=== PATIENT | female | born 1955 | race Caucasian/White ===

== ENCOUNTER → 2016-08-27 | Outpatient (CLI) | payer BC ==
[2016-08-27 13:43] LABS: RBC, BODY FLUID 0.006 10*6/uL; WBC, BODY FLUID 12.58 10*3/uL
[2016-08-27 13:52] LABS: CRYSTALS, SYNOVIAL FLUID NONE SEEN (NS)
== END ==
LOC: RAD 12:47
PROVIDERS: ATTEND Orthopaedic Surgery
DX: M25.562 Pain in left knee (principal); M25.462 Effusion, left knee
CPT/HCPCS: 87070; 87075; 87205; 89060

== ENCOUNTER → 2016-08-27 | Outpatient (CLI) | payer BC ==
--- NOTE | 2016-08-27 13:20 | DI ---
LEFT KNEE, 08/27/2016 12:13 PM: Clinical History: Arthritis of the left knee. Previous Exam: None at this facility. Comparison is made with a previous exam of the left knee from 06/23/2015 from [place], [place]. An AP film is submitted with applied stress from the lateral aspect of the distal femur. There is sub luxation of the tibia laterally. Narrowing of the medial compartment is present with sclerosis on bot h sides of the joint space and with what probably represents early subchondral cystic formation in th e medial femoral condyle. Reading: With application of lateral stress on the distal femur, there is subluxation of the tibia laterally. Arthritic changes are present in the medial compartment.
== END ==
LOC: ORTHO 12:16
PROVIDERS: ATTEND Orthopaedic Surgery
DX: M17.12 Unilateral primary osteoarthritis, left knee (principal); M25.462 Effusion, left knee
CPT/HCPCS: 73560

== ENCOUNTER 2016-10-16 05:53 | Inpatient (IN) | payer BC ==
[2016-10-16] MEDS ORDERED: Lactated Ringers 1,000 ML PRIMARY IV ONE (05:57)
[2016-10-16] MEDS ORDERED: LIDOCAINE W/ SODIUM BICARB 0.5 ML SYR ONE ×2 (05:57→07:22)
[2016-10-16 06:17] LABS: BILIRUBIN,URINE NEGATIVE (NEG); COLOR,URINE YELLOW; GLUCOSE, URINE (UA) NEGATIVE (NEG); NITRATE,URINE NEGATIVE (NEG); OCCULT BLOOD,URINE NEGATIVE (NEG); PROTEIN,URINE TRACE mg/dl (NEG); UROBILINOGEN,URINE 0.2 mg/dL (0.2)
[2016-10-16 06:27] LABS: CLARITY,URINE CLEAR (CLEAR); RBC,URINE 0-1 /hpf; SQUAMOUS EPITHELIAL CELL,UR FEW; URINE SAMPLE TYPE VOIDED SPECIMEN; WBC,URINE 0-2
[2016-10-16 06:28] LABS: URINE CASTS RARE
[2016-10-16] MEDS ORDERED: Sodium Chloride 0.9% vial 20 ML ONE (06:40)
[2016-10-16] MEDS ORDERED: BACITRACIN 50,000 UNIT VIAL IRRIG ONE ×2 (06:41→07:00)
[2016-10-16] MEDS ORDERED: Sodium Chloride 0.9% 500 ML ONE (06:55)
[2016-10-16] MEDS ORDERED: Sodium Chloride 0.9% vial 10 ML ONE (07:00)
[2016-10-16] MEDS ORDERED: LIDOCAINE 2%/ EPI 1:200,000 - 20 ML VIAL ONE (07:12)
[2016-10-16] MEDS ORDERED: MIDAZOLAM 5 MG/1 ML ONE (07:12)
[2016-10-16] MEDS ORDERED: fentaNYL Inj 100 MCG/2 ML VIAL ONE (07:12)
[2016-10-16] MEDS ORDERED: DEXAMETHASONE SOD PHOSPHATE 4 MG/1 ML VIAL ONE (07:13)
[2016-10-16] MEDS ORDERED: BUPivacaine Inj 0.5% PF (5mg/ml) 30ml vial ONE (07:13)
[2016-10-16] MEDS ORDERED: Sodium Chloride 0.9% 200 ML IV ONE (07:18)
[2016-10-16] MEDS ORDERED: TRANEXAMIC ACID 1,000 MG / 10 ML VIAL ONE (07:18)
[2016-10-16] MEDS ORDERED: ceFAZolin Inj 2gm (Premix) 50 ML IV ONE (07:18)
[2016-10-16] MEDS ORDERED: Ketorolac Inj 30 MG, Morphine Inj 5 MG, BUPivacaine Inj 0.25% PF 150 MG SPLASH ONE ×3 (07:30)
[2016-10-16] MEDS ORDERED: BUPivacaine Liposome/PF (Exparel) Inj 20ml vial INFIL ONE (08:18)
[2016-10-16] MEDS ORDERED: Sodium Chloride 0.9% vial 40 ML ONE (08:18)
--- NOTE | 2016-10-16 08:30 | CRNA.PROCE ---
Nerve Block Documentation - - Type of Nerve Block Used: Left Sciatic Nerve Block Position for Nerve Block: Prone Moniters Used During Block: EKG, SPO2, NIBP Oxygen Sumpplented: Yes Sedation Used - Enter Amount in Comment Field: Midazolam (mg): Yes (3), Fentanyl (mcg): Yes (100) Skin Prep Used: ChloroPrep Draped: No Technique: Nerve Stimulator Nerve Block Needle Used: 80 mm ProBlk II Stimulation Hz: 2 Stimulation Staring mA: 1.4 Stimulation Ending mA: 0.44 Local Anesthetic - Enter Amt in Comment Field: 0.5 % Bupivacaine Plain (mL): Yes (10ml), 2 % Xylocaine with Epinephrine 1:200,000 (mL): Yes (10ml) Additives to Nerve Blocks: Dexamethasone (mL): Yes (4mg(1ml))
[2016-10-16] MEDS ORDERED: NORMAL SALINE 10 ML SYRINGE FLUSH IVP PRN ×2 (08:32→11:53)
[2016-10-16] MEDS ORDERED: HYDROmorphone 2 MG/1 ML IVP PRN (08:32)
[2016-10-16] MEDS ORDERED: Prochlorperazine Edisylate Inj 10mg/2ml vial IVP PRN (08:32)
[2016-10-16] MEDS ORDERED: ONDANSETRON 4 MG/2 ML VIAL IVP PRN ×2 (08:32→11:53)
--- NOTE | 2016-10-16 08:32 | CRNA.PROCE ---
Nerve Block Documentation - - Type of Nerve Block Used: Left Femoral Nerve Block Position for Nerve Block: Supine Moniters Used During Block: EKG, SPO2, NIBP Oxygen Sumpplented: Yes Sedation Used - Enter Amount in Comment Field: Other Sedation: Yes (sedation from sciatic note) Skin Prep Used: ChloroPrep Technique: Nerve Stimulator Nerve Block Needle Used: 40 mm ProBlk II Stimulation Hz: 2 Stimulation Staring mA: 1.4 Stimulation Ending mA: 0.44 Local Anesthetic - Enter Amt in Comment Field: 0.5 % Bupivacaine Plain (mL): Yes (10ml), 2 % Xylocaine with Epinephrine 1:200,000 (mL): Yes (10ml) Additives to Nerve Blocks: Dexamethasone (mL): Yes (4mg(2ml))
[2016-10-16] MEDS ORDERED: Lactated Ringers 1,000 ML PRIMARY IV SCH (08:45)
[2016-10-16] MEDS ORDERED: Prochlorperazine Tab 10 MG TAB PO PRN (11:53)
[2016-10-16] MEDS ORDERED: CALCIUM CARBONATE 500 MG (TUMS) CHEWABLE TABLET PO PRN (11:53)
[2016-10-16] MEDS ORDERED: BISACODYL 10 MG SUPPOSITORY RECTAL PRN (11:53)
[2016-10-16] MEDS ORDERED: diphenhydrAMINE 25 MG CAPSULE PO PRN (11:53)
[2016-10-16] MEDS ORDERED: ACETAMINOPHEN 325 MG TABLET PO PRN (11:53)
[2016-10-16] MEDS ORDERED: Ondansetron ODT Tab 8 MG TAB PO PRN (11:53)
[2016-10-16] MEDS ORDERED: IBUPROFEN 400 MG TABLET PO PRN (11:53)
[2016-10-16] MEDS ORDERED: MAG HYDROX/AL HYDROX/SIMETH 30 ML SUSP PO PRN (11:53)
[2016-10-16] MEDS ORDERED: MORPHINE SULFATE 2 MG/1 ML IVP PRN (11:53)
[2016-10-16] MEDS ORDERED: BISACODYL 5 MG TABLET PO PRN (11:53)
[2016-10-16] MEDS: Lactated Ringers 1,000 ML PRIMARY IV SCH ×2 (12:33→22:08)
--- NOTE | 2016-10-16 12:49 | CONSULT ---
Consult Note - Consult Consult Date: 10/16/16 Reason for Consult: PostOp Consulation : General Surgery Requesting Physician: Dr. Grayson Primary Care Provider: JERMAIN APPIAH - History of Present Illness History of Present Illness: This is a 61 years old female with medical history significant for history of hypertension, hypothyroidism, GERD and depression who came into the hospital to have a uni-compartmental left knee replacement because of arthritis and was done by Dr. Grayson and the hospitalist service were consulted for management of medical issues. The patient is currently denying symptoms she has a block so there is no pain, she is denying chest pain and no shortness of breath or nausea. Past Medical History Medical History: 1. Hypothyroidism. 2. Hypertension. 3. Depression. 4. GERD Surgical History: History of right knee surgery before Past Social History: Does not smoke, doesn't drink or drugs. She lives in [place] she works at the assisted, she is a nurse Tobacco Use: Never Smoker Substance Use Type: None Alcohol Use: None Review of Systems - Review of Systems All Systems: Reviewed & No Additional Complaints Except as Stated Medication / Allergies Home Medications: Home Medications Medication Instructions Recorded Confirmed Type Gabapentin [Neurontin] 1 cap PO QHS cap 05/25/16 10/16/16 History Ibuprofen 1 tab PO TID tab 05/25/16 10/16/16 History Levothyroxine Sodium [Synthroid] 1 tab PO DAILY tab 05/25/16 10/16/16 History Omeprazole Magnesium [Prilosec Otc] 1 tab PO QD tab 05/25/16 10/16/16 History Simvastatin [Zocor] 1 tab PO QHS tab 05/25/16 10/16/16 History Losartan Potassium 1 tab PO DAILY tab 08/29/16 10/16/16 History Hydrocodone/Acetaminophen 1 - 2 tab PO PRN tab 10/03/16 10/16/16 History [Hydrocodon-Acetaminophen 5-325] Hydrochlorothiazide 25 mg PO DAILY 10/15/16 10/16/16 History Desvenlafaxine Succinate [Pristiq] 100 mg PO DAILY 10/16/16 10/16/16 History Gabapentin [Neurontin] 100 mg PO QAM 10/16/16 10/16/16 History Allergies/Adverse Reactions: Allergies Allergy/AdvReac Type Severity Reaction Status Date / Time No Known Allergies Allergy Verified 10/16/16 12:00 Exam - Vitals Vital Signs: Vital Signs Temperature 97.1 F Temperature Source Temporal Artery Scan Pulse Rate [Pulse Oximeter] 94 Pulse Rate 91 Respiratory Rate 18 Blood Pressure [Right Arm] 139/91 Blood Pressure 130/84 Pulse Ox 96 Oxygen Flow Rate 1 Oxygen Flow Rate 2 Oxygen Delivery Method Nasal Cannula Height 5 ft 4 in Weight 188 lb - General General Appearance: POSITIVE: No Acute Distress, Cooperative, Obese - Head Head Exam: POSITIVE: Normal Inspection, Atraumatic - Eye Eye Exam: POSITIVE: Normal Appearance - ENT ENT Exam: POSITIVE: Normal Exam - Neck Neck Exam: POSITIVE: Normal Inspection - Respiratory Respiratory Exam: POSITIVE: Clear to Auscultation - Bilaterally - Cardiovascular Cardiovascular Exam: POSITIVE: RRR - GI/Abdominal GI/Abdominal Exam: POSITIVE: Normal Bowel Sounds, Non Tender, Non Distended, Soft - Rectal Rectal Exam: POSITIVE: Deferred - External Exam: POSITIVE: Deferred - Extremities Additional Extremities Exam Details: Dressing applied to the left knee - Back Back Exam: POSITIVE: Normal Inspection - Neurological Neurological Exam: POSITIVE: Alert, Oriented x 3, CN II-XII Intact, No Facial Droop, Speech Intact / Clear - Psychiatric Psychiatric Exam: POSITIVE: Normal Affect Results - Labs Labs - Last 24 Hours: Laboratory Results 10/16/16 10/16/16 Range/Units 06:12 06:40 Ur Collection Type Voided specimen Urine Color Yellow Urine Clarity Clear (CLEAR) Urine pH 7.0 (5.0-8.5) Ur Specific [place] 1.020 (1.005-1.030) Urine Protein Trace (NEG) mg/dl Urine Glucose (UA) Negative (NEG) mg/dL Urine Ketones Negative (NEG) Urine Occult Blood Negative (NEG) Urine Nitrate Negative (NEG) Urine Bilirubin Negative (NEG) Urine Urobilinogen 0.2 (0.2) mg/dL Ur Leukocyte Esterase Negative (NEG) Urine RBC 0-1 (NONE) /hpf Urine WBC 0-2 (NONE) Ur Squamous Epith Cells Few (NONE) Ur Renal Epithelial Cell None (NONE) Urine Crystals None Urine Bacteria None (NONE) Urine Casts Rare Urine Mucus Many (NONE) Urine Trichomonas None (NONE) Urine Yeast None (NONE) Blood Type O POSITIVE Antibody Screen Negative Assessment and Plan - Patient Problems (1) Hypertension Current Visit: Yes Status: Acute Comment: Continue same medications (2) Hypothyroidism Current Visit: Yes Status: Acute Comment: Same med (3) GERD (gastroesophageal reflux disease) Current Visit: Yes Status: Acute Comment: Same med (4) Status post left unicompartmental knee replacement Current Visit: Yes Status: Acute Comment: PT and OT were ordered by Dr. Grayson, he put her on Lovenox for DVT prophylaxis. Pain medication written by him.
[2016-10-16] MEDS: HYDROcodone-APAP 7.5 MG-325 MG TABLET PO PRN ×2 (13:03→20:36)
--- NOTE | 2016-10-16 13:53 | DI ---
XR KNEE 1 OR 2 VWS,10/16/2016 10:39 AM: Clinical History: Left unicompartmental replacement. Previous Exam: August 27, 2016 Findings: AP and lateral views of the left knee are obtained, and demonstrate postsurgical changes consistent w ith a left medial compartment hemiarthroplasty. There is some free air noted within the knee joint to include the suprapatellar bursa. There is no hardware loosening identified. Impression: Hemiarthroplasty of the left medial compartment.
[2016-10-16] MEDS: ceFAZolin Inj 2gm (Premix) 2 GM in Dextrose 1 BAG IV SCH (15:36)
--- NOTE | 2016-10-16 16:13 | ORTHO.PROG ---
Last Taken Vital Signs: Vital Signs - Last Taken Temperature 97.5 F 10/16/16 13:37 Pulse Rate 93 10/16/16 13:37 Respiratory Rate 17 10/16/16 13:37 Blood Pressure 126/71 10/16/16 13:37 Pulse Ox 93 10/16/16 15:50 Subjective: Patient's pain control is good at the current time she has a sciatic and femoral nerve block in place Objective: Examination shows that the patient has very limited motion of the leg can flex the hip up and bend the knee a little bit but has no ability to actively extend her left the foot or ankle. A fairly dense sciatic and femoral nerve block as well as a sensory corresponding to this. Patient with good pulses brisk refill dressing clean and dry. Assessment: Left medial unicompartmental knee replacement doing well Plan: Spent a great deal of time discussing the absolute necessity of using a knee immobilizer with any type of immobilization over the next 72 hours. In this mobilization is also to be nonweightbearing with crutches or walker on the left side. But as I discussed with the patient issues the knee will not support her weight at all even with a knee immobilizer at the current time and needs to be strictly nonweightbearing with a knee immobilizer work range of motion and we will see how she progresses with therapy possibly home tomorrow or if she does well and has good pain control on oral medication.
[2016-10-16] MEDS: OMEPRAZOLE 20 MG CAPSULE PO SCH (16:41)
[2016-10-16] MEDS: GABAPENTIN 300 MG CAPSULE PO SCH (20:32)
[2016-10-16] MEDS: Simvastatin Tab 80 MG TAB PO SCH (20:33)
[2016-10-16] MEDS: DOCUSATE 100 MG CAPSULE PO SCH (20:33)
[2016-10-16] MEDS: Zolpidem Tab 5 MG TAB PO PRN (22:07)
[2016-10-17] MEDS: ceFAZolin Inj 2gm (Premix) 2 GM in Dextrose 1 BAG IV SCH (00:12)
[2016-10-17] MEDS: HYDROcodone-APAP 7.5 MG-325 MG TABLET PO PRN ×6 (00:13→23:55)
[2016-10-17] MEDS: LEVOTHYROXINE 100 MCG TABLET PO SCH (05:02)
[2016-10-17] MEDS ORDERED: LEVOTHYROXINE 112 MCG TABLET PO SCH (05:30)
[2016-10-17 05:33] LABS: HEMATOCRIT 33.4 % (37.0-47.0); HEMOGLOBIN 10.7 g/dL (12.0-16.0); MEAN CORPUSCULAR HEMOGLOBIN 28.7 PG (27-31); MEAN CORPUSCULAR VOLUME 89.5 FL (81-99); MEAN PLATELET VOLUME 9.4 FL (7.4-12.2); RED BLOOD COUNT 3.73 10^6/uL (4.20-5.40)
[2016-10-17 05:42] LABS: BLOOD UREA NITROGEN 12 mg/dL (7-22); CALCIUM 8.6 mg/dL (8.7-10.7); EST GLOMERULAR FILTRATION > 60 (>60 ml/min/1.73m(2))
[2016-10-17] MEDS: OMEPRAZOLE 20 MG CAPSULE PO SCH (06:57)
[2016-10-17] MEDS: GABAPENTIN 100 MG CAPSULE PO SCH (06:57)
[2016-10-17] MEDS ORDERED: OMEPRAZOLE 20 MG CAPSULE PO SCH (07:00)
[2016-10-17] MEDS: LOSARTAN 50 MG TABLET PO SCH (08:23)
[2016-10-17] MEDS: HYDROCHLOROTHIAZIDE 25 MG TABLET PO SCH (08:23)
[2016-10-17] MEDS: DESVENLAFAXINE SUCCINATE 100 MG PO SCH (08:23)
[2016-10-17] MEDS: DOCUSATE 100 MG CAPSULE PO SCH ×2 (08:23→20:08)
[2016-10-17] MEDS: ENOXAPARIN SODIUM 30 MG/0.3 ML SYRINGE SUBCUT SCH ×2 (08:24→20:08)
[2016-10-17] MEDS ORDERED: ENOXAPARIN SODIUM 30 MG/0.3 ML SYRINGE SUBCUT SCH (09:00)
[2016-10-17] MEDS ORDERED: Non-Formulary Drug (Losartan Potassium [Losartan Potassium] 1 TAB) PO SCH (09:00)
[2016-10-17] MEDS: Lactated Ringers 1,000 ML PRIMARY IV SCH (09:09)
--- NOTE | 2016-10-17 09:57 | ORTHO.PROG ---
Last Taken Vital Signs: Vital Signs - Last Taken Temperature 98 F 10/17/16 07:51 Pulse Rate 103 H 10/17/16 07:51 Respiratory Rate 16 10/17/16 07:51 Blood Pressure 156/90 10/17/16 07:51 Pulse Ox 92 10/17/16 07:51 Subjective: Patient's pain control is pretty reasonable mild effect still from blocks of sciatic and femoral nerve. Mobilize with mobilizing. Objective: Patient is doing well dressing is in place no active issues. Motor and sensory exam are blockers are wearing off improving and otherwise reasonable motor. Intake and Output - 8hrs 10/16/16 10/16/16 10/17/16 10/17/16 13:59 21:59 05:59 13:59 Intake: IV 2624 393 4504 125 Intake Oral Amount 240 950 Output: Output, Urinary Catheter 550 850 500 Amount Output, Urine Amount 300 Output, Estimated Blood 30 Loss Amount Other: Percent Meal Consumed 100% 100% 100% Weight 85.275 kg 89.176 kg Weight Measurement Method Standing Scale Standing Scale Laboratory Results 10/17/16 Range/Units 05:20 WBC 11.60 H (4.8-10.8) 10^3/uL RBC 3.73 L (4.20-5.40) 10^6/uL Hgb 10.7 L (12.0-16.0) g/dL Hct 33.4 L (37.0-47.0) % MCV 89.5 (81-99) FL MCH 28.7 (27-31) PG MCHC 32.0 L (33-37) g/dL RDW Std Deviation 41.4 (39-50) fL RDW Coeff of [place] 13.1 (11.5-14.5) % Plt Count 280 (140-350) 10*3/uL MPV 9.4 (7.4-12.2) FL Sodium 136 (135-145) meq/L Potassium 3.8 (3.8-5.2) meq/L Chloride 105 (98-112) meq/L Carbon Dioxide 25 (23-33) meq/L Anion Gap 6 (5-20) BUN 12 (7-22) mg/dL Creatinine 0.6 (0.50-1.20) mg/dL Estimated GFR > 60 (>60 ml/min/1.73m(2)) BUN/Creatinine Ratio 20.00 (6-20) Glucose 133 H (78-110) mg/dL Calculated Osmolality 283.0 (267-292) mOsm/kg Calcium 8.6 L (8.7-10.7) mg/dL Assessment: Left unicompartmental knee replacement medial side doing well Plan: We will continue with physical therapy occupational therapy. We will check her in the afternoon see if she may be able to go home today but we'll have to get medical clearance we will have her continue with anticoagulation with Lovenox.
--- NOTE | 2016-10-17 10:21 | PDOC(PROG) ---
Date and Time of Service: 10/17/2016 10:19 AM Interval History: Subjective Patient had some pain in her left knee took some pain medication. Took also some Zofran. But otherwise denying chest pain or or shortness of breath. Objective : Data - Labs CBC and BMP: 10/17/16 05:20 10/17/16 05:20 Labs - Last 24 Hours: Laboratory Results 10/17/16 Range/Units 05:20 WBC 11.60 H (4.8-10.8) 10^3/uL RBC 3.73 L (4.20-5.40) 10^6/uL Hgb 10.7 L (12.0-16.0) g/dL Hct 33.4 L (37.0-47.0) % MCV 89.5 (81-99) FL MCH 28.7 (27-31) PG MCHC 32.0 L (33-37) g/dL RDW Std Deviation 41.4 (39-50) fL RDW Coeff of [place] 13.1 (11.5-14.5) % Plt Count 280 (140-350) 10*3/uL MPV 9.4 (7.4-12.2) FL Sodium 136 (135-145) meq/L Potassium 3.8 (3.8-5.2) meq/L Chloride 105 (98-112) meq/L Carbon Dioxide 25 (23-33) meq/L Anion Gap 6 (5-20) BUN 12 (7-22) mg/dL Creatinine 0.6 (0.50-1.20) mg/dL Estimated GFR > 60 (>60 ml/min/1.73m(2)) BUN/Creatinine Ratio 20.00 (6-20) Glucose 133 H (78-110) mg/dL Calculated Osmolality 283.0 (267-292) mOsm/kg Calcium 8.6 L (8.7-10.7) mg/dL Objective : Exam - General General Appearance: No Acute Distress, Cooperative - Head Head Exam: Normal Inspection, Atraumatic - Eye Eye Exam: Normal Appearance - ENT ENT Exam: Normal Exam - Neck Neck Exam: Normal Inspection - Respiratory Respiratory Exam: Clear to Auscultation - Bilaterally - Cardiovascular Cardiovascular Exam: RRR - GI/Abdominal GI/Abdominal Exam: Normal Bowel Sounds, Non Tender, Non Distended, Soft - Rectal Rectal Exam: Deferred - External Exam: Deferred - Extremities Additional Extremities Exam Details: Dressing applied to the left knee. - Back Back Exam: Normal Inspection - Neurological Neurological Exam: Alert, Oriented x 3, CN II-XII Intact Assessment and Plan - Patient Problems (1) Hypertension Current Visit: Yes Status: Acute Comment: Same medications (2) Hypothyroidism Current Visit: Yes Status: Acute Comment: Same med (3) GERD (gastroesophageal reflux disease) Current Visit: Yes Status: Acute Comment: Same med (4) Status post left unicompartmental knee replacement Current Visit: Yes Status: Acute Comment: Continue PT, OT. She said she has stairs so she'll have another session of physical therapy in the afternoon probably home tomorrow I suspect. Photo / Body Diagrams - Uploaded Photos Uploaded Photos:
--- NOTE | 2016-10-17 15:21 | PT.PROG ---
Progress Note Progress Note: PM PT S: Pt states that she is more sore this afternoon vs. this AM. O: Treatment consisted of ambulation x 150 feet with standard walker and CGA x 1 for safety f/b MHP x 20 min to L knee. Pt was instructed in ther ex consisting of: 10x - quad sets, heel slides, glut squeezes, SLR, SAQ, hip abd/ add, LAQ, 4 way ankle, sit to stand transfers. Pt was brought back up to room in w/c as she was sore from walking down earlier and exercises. Pt was left in chair with alarm set and call light within reach. A: Doing very well for one day post-op. Requires min VC to utilize walker correctly to demo safer gait pattern. P: Continue per POC to address established goals.
[2016-10-17] MEDS: Simvastatin Tab 80 MG TAB PO SCH (20:08)
[2016-10-17] MEDS: GABAPENTIN 300 MG CAPSULE PO SCH (20:09)
[2016-10-17] MEDS: Zolpidem Tab 5 MG TAB PO PRN (21:20)
[2016-10-18] MEDS: HYDROcodone-APAP 7.5 MG-325 MG TABLET PO PRN ×4 (04:02→16:23)
[2016-10-18 05:16] LABS: HEMATOCRIT 33.3 % (37.0-47.0); HEMOGLOBIN 10.2 g/dL (12.0-16.0); MEAN CORPUSCULAR HEMOGLOBIN 28.3 PG (27-31); MEAN CORPUSCULAR HGB CONC 30.6 g/dL (33-37); MEAN CORPUSCULAR VOLUME 92.5 FL (81-99); RED BLOOD COUNT 3.6 10^6/uL (4.20-5.40)
[2016-10-18 05:29] LABS: BLOOD UREA NITROGEN 16 mg/dL (7-22); CALCIUM 8.5 mg/dL (8.7-10.7); EST GLOMERULAR FILTRATION > 60 (>60 ml/min/1.73m(2))
[2016-10-18] MEDS: LEVOTHYROXINE 100 MCG TABLET PO SCH (06:07)
[2016-10-18] MEDS: OMEPRAZOLE 20 MG CAPSULE PO SCH (06:51)
[2016-10-18] MEDS: GABAPENTIN 100 MG CAPSULE PO SCH (06:51)
[2016-10-18] MEDS: LOSARTAN 50 MG TABLET PO SCH (10:51)
[2016-10-18] MEDS: DOCUSATE 100 MG CAPSULE PO SCH (10:51)
[2016-10-18] MEDS: DESVENLAFAXINE SUCCINATE 100 MG PO SCH (10:51)
[2016-10-18] MEDS: ENOXAPARIN SODIUM 30 MG/0.3 ML SYRINGE SUBCUT SCH (10:51)
[2016-10-18] MEDS: HYDROCHLOROTHIAZIDE 25 MG TABLET PO SCH (10:52)
[2016-10-18] MEDS ORDERED: Senna Tab 8.6 MG TAB PO ONE (11:15)
--- NOTE | 2016-10-18 11:20 | PDOC(PROG) ---
Date and Time of Service: 10/18/2016 11:18 AM Interval History: Subjective Patient having pain in the left knee but it's controlled with current pain medications. No other symptoms. She think she needs something for her bowels. Objective : Data - Labs CBC and BMP: 10/18/16 04:12 10/18/16 04:12 Labs - Last 24 Hours: Laboratory Results 10/18/16 Range/Units 04:12 WBC 9.27 (4.8-10.8) 10^3/uL RBC 3.60 L (4.20-5.40) 10^6/uL Hgb 10.2 L (12.0-16.0) g/dL Hct 33.3 L (37.0-47.0) % MCV 92.5 (81-99) FL MCH 28.3 (27-31) PG MCHC 30.6 L (33-37) g/dL RDW Std Deviation 45.4 (39-50) fL RDW Coeff of [place] 13.8 (11.5-14.5) % Plt Count 263 (140-350) 10*3/uL MPV 10.0 (7.4-12.2) FL Sodium 137 (135-145) meq/L Potassium 3.8 (3.8-5.2) meq/L Chloride 101 (98-112) meq/L Carbon Dioxide 28 (23-33) meq/L Anion Gap 8 (5-20) BUN 16 (7-22) mg/dL Creatinine 0.8 (0.50-1.20) mg/dL Estimated GFR > 60 (>60 ml/min/1.73m(2)) BUN/Creatinine Ratio 20.00 (6-20) Glucose 113 H (78-110) mg/dL Calculated Osmolality 285.0 (267-292) mOsm/kg Calcium 8.5 L (8.7-10.7) mg/dL Objective : Exam - General General Appearance: No Acute Distress, Cooperative - Head Head Exam: Normal Inspection, Atraumatic - Eye Eye Exam: Normal Appearance - ENT ENT Exam: Normal Exam - Neck Neck Exam: Normal Inspection - Respiratory Respiratory Exam: Clear to Auscultation - Bilaterally - Cardiovascular Cardiovascular Exam: RRR - GI/Abdominal GI/Abdominal Exam: Normal Bowel Sounds, Non Tender, Non Distended, Soft - Rectal Rectal Exam: Deferred - External Exam: Deferred - Extremities Additional Extremities Exam Details: Dressing applied to the incision of left knee - Back Back Exam: Normal Inspection - Neurological Neurological Exam: Alert, Oriented x 3, CN II-XII Intact, No Facial Droop - Psychiatric Psychiatric Exam: Normal Affect Assessment and Plan - Patient Problems (1) Hypertension Current Visit: Yes Status: Acute Comment: Same medications (2) Hypothyroidism Current Visit: Yes Status: Acute Comment: Same med (3) GERD (gastroesophageal reflux disease) Current Visit: Yes Status: Acute Comment: Same med (4) Status post left unicompartmental knee replacement Current Visit: Yes Status: Acute Comment: Continue PT and OT. Question home today in the afternoon if okay with Dr. Grayson. We'll give her senna for her bowels. For DVT prophylaxis she is on Lovenox (5) Postoperative anemia due to acute blood loss Current Visit: Yes Status: Acute Comment: This is a stable. Photo / Body Diagrams - Uploaded Photos Uploaded Photos:
--- NOTE | 2016-10-18 13:46 | PT.PROG ---
Progress Note Progress Note: S. Patient stated that she is feeling a little out of it due to pain med this morning. O. Patient ambulated 175 feet to the therapy gym where she had heat and micro massage to decrease edema. Patient performed exercises in the form of; heel slides, quad sets, short arc quads, straight leg raises, hip abduction/adduction , ankle pumps, long arc quads, marches, sit to stands, box step ups (#3 box) all x10. Patient ambulated 175 feet back to her room where she was left in the restroom and nursing was notified. A. Patient appeared have decreased cognition due to pain medicine this morning. Patient tolerated exercises well this morning, she was able to perform all quad exercises this morning. Patient will perform stair training this afternoon. P. continue POC.
--- NOTE | 2016-10-18 13:46 | ORTHO.PROG ---
Last Taken Vital Signs: Vital Signs - Last Taken Temperature 97.2 F 10/18/16 11:05 Pulse Rate 86 10/18/16 11:05 Respiratory Rate 16 10/18/16 11:05 Blood Pressure 107/64 10/18/16 11:05 Pulse Ox 92 10/18/16 11:05 Subjective: Patient doing well after left unicompartmental knee replacement medial Objective: Incision is generally clean and dry there is a [id number] amount of swelling of the leg. She denies any calf, popliteal, adductor hiatus or thigh pain. Her motor and sensory exam is nonfocal with good pulses and brisk refill. Laboratory Results 10/18/16 Range/Units 04:12 WBC 9.27 (4.8-10.8) 10^3/uL RBC 3.60 L (4.20-5.40) 10^6/uL Hgb 10.2 L (12.0-16.0) g/dL Hct 33.3 L (37.0-47.0) % MCV 92.5 (81-99) FL MCH 28.3 (27-31) PG MCHC 30.6 L (33-37) g/dL RDW Std Deviation 45.4 (39-50) fL RDW Coeff of [place] 13.8 (11.5-14.5) % Plt Count 263 (140-350) 10*3/uL MPV 10.0 (7.4-12.2) FL Sodium 137 (135-145) meq/L Potassium 3.8 (3.8-5.2) meq/L Chloride 101 (98-112) meq/L Carbon Dioxide 28 (23-33) meq/L Anion Gap 8 (5-20) BUN 16 (7-22) mg/dL Creatinine 0.8 (0.50-1.20) mg/dL Estimated GFR > 60 (>60 ml/min/1.73m(2)) BUN/Creatinine Ratio 20.00 (6-20) Glucose 113 H (78-110) mg/dL Calculated Osmolality 285.0 (267-292) mOsm/kg Calcium 8.5 L (8.7-10.7) mg/dL Vital Signs (24 hrs) Temp Pulse Resp BP BP Pulse Ox 10/18/16 11:05 97.2 F 86 16 107/64 92 10/18/16 07:20 97.2 F 89 17 130/79 95 10/18/16 04:29 98.5 F 94 20 132/73 91 10/17/16 23:42 98.1 F 95 20 120/86 92 10/17/16 20:16 98.1 F 89 20 125/68 95 10/17/16 16:56 97.8 F 90 14 110/64 92 Assessment: Left unicompartmental knee replacement doing well Plan: Patient will continue with physical therapy and occupational therapy. If she is able to do stairs and completes this task we should be able to discharge her home. Discharge her home on her current pain medication of hydrocodone 7.5/325 and continue deep vein thrombosis he prophylaxis with Lovenox.
--- NOTE | 2016-10-18 15:11 | DCSUMMARY ---
Hospitalization Summary Admit Date: 10/16/16 Discharge Date: 10/18/16 Hospital Course: Discharge diagnoses 1. Status post left medial unicompartmental knee replacement 2. Hypertension 3. Hypothyroidism 4. Depression 5. GERD 6. Post operative anemia secondary to acute blood loss Hospital course This is a 61 years old female with medical history significant for history of hypertension, hypothyroidism, GERD and depression who came into the hospital to have a unicompartmental left knee replacement because of arthritis and was done by Dr. Grayson and the hospitalist service were consulted for management of medical issues. Patient course was uneventful, she had some mild postoperative anemia secondary to postoperative blood loss that remained stable, patient did well with physical therapy she was put on Lovenox for DVT prophylaxis. The day of discharge her symptoms seems to be controlled with the pain medications we thought that she could be discharged home after clearance from physical therapy , Dr. Grayson also saw the patient and agreed with discharge. She will follow -up with him later on as an outpatient and with her primary. Laboratory Results 10/16/16 10/16/16 10/17/16 Range/Units 06:12 06:40 05:20 WBC 11.60 H (4.8-10.8) 10^3/uL RBC 3.73 L (4.20-5.40) 10^6/uL Hgb 10.7 L (12.0-16.0) g/dL Hct 33.4 L (37.0-47.0) % MCV 89.5 (81-99) FL MCH 28.7 (27-31) PG MCHC 32.0 L (33-37) g/dL RDW Std Deviation 41.4 (39-50) fL RDW Coeff of [place] 13.1 (11.5-14.5) % Plt Count 280 (140-350) 10*3/uL MPV 9.4 (7.4-12.2) FL Sodium 136 (135-145) meq/L Potassium 3.8 (3.8-5.2) meq/L Chloride 105 (98-112) meq/L Carbon Dioxide 25 (23-33) meq/L Anion Gap 6 (5-20) BUN 12 (7-22) mg/dL Creatinine 0.6 (0.50-1.20) mg/dL Estimated GFR > 60 (>60 ml/min/1.73m(2)) BUN/Creatinine Ratio 20.00 (6-20) Glucose 133 H (78-110) mg/dL Calculated Osmolality 283.0 (267-292) mOsm/kg Calcium 8.6 L (8.7-10.7) mg/dL Ur Collection Type Voided specimen Urine Color Yellow Urine Clarity Clear (CLEAR) Urine pH 7.0 (5.0-8.5) Ur Specific Walton 1.020 (1.005-1.030) Urine Protein Trace (NEG) mg/dl Urine Glucose (UA) Negative (NEG) mg/dL Urine Ketones Negative (NEG) Urine Occult Blood Negative (NEG) Urine Nitrate Negative (NEG) Urine Bilirubin Negative (NEG) Urine Urobilinogen 0.2 (0.2) mg/dL Ur Leukocyte Esterase Negative (NEG) Urine RBC 0-1 (NONE) /hpf Urine WBC 0-2 (NONE) Ur Squamous Epith Cells Few (NONE) Ur Renal Epithelial Cell None (NONE) Urine Crystals None Urine Bacteria None (NONE) Urine Casts Rare Urine Mucus Many (NONE) Urine Trichomonas None (NONE) Urine Yeast None (NONE) Blood Type O POSITIVE Antibody Screen Negative 10/18/16 Range/Units 04:12 WBC 9.27 (4.8-10.8) 10^3/uL RBC 3.60 L (4.20-5.40) 10^6/uL Hgb 10.2 L (12.0-16.0) g/dL Hct 33.3 L (37.0-47.0) % MCV 92.5 (81-99) FL MCH 28.3 (27-31) PG MCHC 30.6 L (33-37) g/dL RDW Std Deviation 45.4 (39-50) fL RDW Coeff of [place] 13.8 (11.5-14.5) % Plt Count 263 (140-350) 10*3/uL MPV 10.0 (7.4-12.2) FL Sodium 137 (135-145) meq/L Potassium 3.8 (3.8-5.2) meq/L Chloride 101 (98-112) meq/L Carbon Dioxide 28 (23-33) meq/L Anion Gap 8 (5-20) BUN 16 (7-22) mg/dL Creatinine 0.8 (0.50-1.20) mg/dL Estimated GFR > 60 (>60 ml/min/1.73m(2)) BUN/Creatinine Ratio 20.00 (6-20) Glucose 113 H (78-110) mg/dL Calculated Osmolality 285.0 (267-292) mOsm/kg Calcium 8.5 L (8.7-10.7) mg/dL Ur Collection Type Urine Color Urine Clarity (CLEAR) Urine pH (5.0-8.5) Ur Specific Walton (1.005-1.030) Urine Protein (NEG) mg/dl Urine Glucose (UA) (NEG) mg/dL Urine Ketones (NEG) Urine Occult Blood (NEG) Urine Nitrate (NEG) Urine Bilirubin (NEG) Urine Urobilinogen (0.2) mg/dL Ur Leukocyte Esterase (NEG) Urine RBC (NONE) /hpf Urine WBC (NONE) Ur Squamous Epith Cells (NONE) Ur Renal Epithelial Cell (NONE) Urine Crystals Urine Bacteria (NONE) Urine Casts Urine Mucus (NONE) Urine Trichomonas (NONE) Urine Yeast (NONE) Blood Type Antibody Screen Discharge instruction Diet regular Activity as tolerated Medications Home Medications Medication Instructions Recorded Confirmed Type Gabapentin [Neurontin] 1 cap PO QHS cap 05/25/16 10/16/16 History Ibuprofen 1 tab PO TID tab 05/25/16 10/16/16 History Levothyroxine Sodium [Synthroid] 1 tab PO DAILY tab 05/25/16 10/16/16 History Omeprazole Magnesium [Prilosec Otc] 1 tab PO QD tab 05/25/16 10/16/16 History Simvastatin [Zocor] 1 tab PO QHS tab 05/25/16 10/16/16 History Losartan Potassium 1 tab PO DAILY tab 08/29/16 10/16/16 History Hydrocodone/Acetaminophen 1 - 2 tab PO PRN tab 10/03/16 10/16/16 History [Hydrocodon-Acetaminophen 5-325] Hydrochlorothiazide 25 mg PO DAILY 10/15/16 10/16/16 History Desvenlafaxine Succinate [Pristiq] 100 mg PO DAILY 10/16/16 10/16/16 History Gabapentin [Neurontin] 100 mg PO QAM 10/16/16 10/16/16 History Enoxaparin Inj [Lovenox Inj] 30 mg SUBCUT BID #24 syringe 10/18/16 Rx HYDROcodone/APAP 7.5/325 Tab 1 - 2 tab PO Q4H PRN #50 tab 10/18/16 Rx [Vici 7.5/325 Tab] Follow-up with Dr. Grayson and with PCP Condition at discharge stable for discharge Exam - Vitals Vital Signs: Vital Signs Temperature 97.2 F Temperature Source Temporal Artery Scan Pulse Rate [Apical] 84 Pulse Rate [Pulse Oximeter] 86 Pulse Rate 91 Respiratory Rate 16 Blood Pressure [Left Arm] 107/64 Blood Pressure [Right Arm] 120/86 Blood Pressure 130/84 Pulse Ox 92 Oxygen Flow Rate 1 Oxygen Flow Rate 2 Oxygen Delivery Method Room Air Height 5 ft 4 in Weight 198 lb 3.2 oz Patient Problems - Patient Problem List (1) Hypertension Current Visit: Yes Status: Acute (2) Hypothyroidism Current Visit: Yes Status: Acute (3) GERD (gastroesophageal reflux disease) Current Visit: Yes Status: Acute (4) Status post left unicompartmental knee replacement Current Visit: Yes Status: Acute (5) Postoperative anemia due to acute blood loss Current Visit: Yes Status: Acute
[2016-10-18 16:27] VITALS: RESP 18; TEMP 97.7
--- NOTE | 2016-10-18 16:45 | OT.PROG ---
Progress Note Progress Note: S: pt stated that she is feeling kind of "weird" due to pain meds. O: pt was seen in the a.m. and worked on ADL dressing with adaptive equipment. She completed B LE's using sock aid and environmental studies professor Ind. She completed LE & UE dressing Ind. She also completed toilet transfer and toileting Ind as well as hygiene at sink. She completed transfer downstairs to complete PT. A: pt completed Donning of LE/UE clothing Ind and october d/c from OT. P: d/c in the pm.
--- NOTE | 2016-10-19 08:14 | PT.PROG ---
Progress Note Progress Note: S: Pt. states she is doing very well. States she is ready to go home. O: Treatment consisted of ambulating down to the therapy room and completing 12 stairs up and down. She then received moist heat f/b therapeutic exercises: qs, hs, slr, saq, hip abd/add, laq, seated marches, sit to stands x 10. Manual therapy including stretching her knee into flexion and extension to tolerance. Pt. then ambulated back to her room with standard walker and was placed in her bed with call button and bed alarm in place. A: Pt. has done very well with all exercises and activities. She had met all goals at this times. She is cleared by PT at this time to be d/c home. P: Continue per POC to increase strength and activity tolerance unless otherwise d/c from facility. Lety Antoine, SLAB LIFTING SUPERVISOR
--- NOTE | 2016-10-22 10:54 | OPS CRUTCH ---
Diagnosis : Left Uni-Knee Referral Reason: Knee Immobilizer O: The patient was issued a knee immobilizer and instructed in its proper use and care. P: No further therapy is indicated at this time. MTDD
--- NOTE | 2016-10-22 11:32 | PTI REPORT ---
Thank you for the referral of Daly Crump. SHe was seen on 10/17/16 for an inpatient evaluation status post left leslye knee replacement. SUBJECTIVE: The patient is a 61-year-old female who is one day status post a leslye left knee replacement. The patient was sitting up in bed upon PT arrival. She states that she is doing fairly well this morning with 3/10 pain and is looking forward to getting up and moving. The patient reports that she is from [place] where she lives by herself and works at the alf in [facility]. The patient states that she has 6-7 stairs to get into and within her home. The patient states that she also has a sister who lives in [place] and she is planning on staying with her for the first couple of weeks after she is discharged from the hospital. The patient states that the only past medical history that she really has is that she had a right leslye knee replacement in February of 2009 and has done very well since having that procedure. PAST MEDICAL HISTORY: Past medical history can be found in the patient's medical record. OBJECTIVE FINDINGS: General observations: The patient is alert and oriented to setting upon PT arrival. The patient does have a catheter in place and a bandage around the left lower extremity. Pain: The patient rates her pain as a 3/10 on the verbal analog scale (0=no pain , 10=worst pain). Bed mobility: The patient is able to independently move from a reclined position to a seated edge of bed position. The patient demonstrates good seated edge of bed balance. The patient was able to move from a seated to supine position independently. The patient is able to independently lift the left lower extremity. Activities of daily living: The patient stated that before she got up to walk she would like to get dressed. With assist of one, the patient was able to don her pants and socks and she was independent with upper extremity dressing. Transfers: A knee immobilizer was placed on the left lower extremity and the patient was able to independently move from a seated to standing position. The patient denied any lightheadedness or dizziness. The patient was able to perform a standing to seated transfer without any safety concerns. Ambulation: The patient was able to ambulate 150 feet without rest break with contact guard assist x1 for safety and use of standard walker. The patient did require mod verbal cueing in order to use the walker correctly as she had a tendency to rock the walker when ambulating with it and place the walker out a little further than appropriate. The patient was able to easily correct her walker form. ASSESSMENT: The patient has good rehab potential. Problem List: Pain in the left knee Decreased passive and active range of motion in the left knee Decreased strength in the left knee Short-Term Goals: To be met by discharge from inpatient: Patient will be able to transfer from bed to stand independently and safely. Patient will be able to ambulate at least 150 feet with walker and weight- bearing as tolerated on the left. Patient will be able to ascend and descend at least 7 stairs with walker and weight-bearing as tolerated on the left. Long-Term Goals: To be met following discharge from inpatient: Patient will attend outpatient physical therapy where she will be instructed in an independent home exercise and stretching program. TREATMENT PLAN: Patient will be seen B.I.D during the week and one time per day over the weekend as an inpatient to work on safety and independence with transfers and ambulation along with general range of motion and strengthening activities. INITIAL TREATMENT: Treatment today consisted of the initial evaluation followed by one unit of functional activity with the patient ambulating 150 feet with standard walker and contact guard assist x1 for safety. The patient was instructed on quad sets , ankle pumps, and glut squeezes. The patient was left in her bed with alarm set and call light within reach. [facility]ERR[facility]
--- NOTE | 2016-10-22 12:04 | OTI REPORT ---
Thank you for the referral of Daly Crump. She was seen on 10/17/16 for an occupational therapy inpatient evaluation status post left leslye knee replacement. SUBJECTIVE: The patient is a 61-year-old female who is status post left leslye knee replacement. The patient reports she does live in [place]. She states she has had a previous total knee on the right leg and did handle it well. She does report that she has other back issues but no shoulder issues at this time. The patient does live in an upstairs apartment with six stairs to the upper apartment. Once inside there are no stairs. She did report she has a bathtub with a shower. She does already have a seat in the shower as well as a high rise toilet seat. The patient does report that her knee is starting to wake up this afternoon so she is a little bit more sore. The patient does report that she does not want to get out of bed as she had already done physical therapy and wasn't willing to get out of bed at this time, but she did want the mammography technologist and sock aide left with her to take home. The patient did report she would get dressed for us in the morning and the therapist does foresee that she will be mod independent with that once teaching of the equipment is completed. PAST MEDICAL HISTORY: Past medical history can be found in the patient's medical record. OBJECTIVE FINDINGS: Activities of daily living: According to the patient when she got dressed this morning, she was able to dress her upper extremities and lower extremities independently, but her socks were already on, so she was unsure if she would be able to don her socks. The patient does report that she does not want to get out of bed as she had already done physical therapy and wasn't willing to get out of bed at this time, but she did want the mammography technologist and sock aide left with her to take home. The patient did report she would get dressed for us in the morning and the therapist does foresee that she will be mod independent with that once teaching of the equipment is completed. Range of motion: The patient has good shoulder range of motion. Strength: The patient demonstrates upper extremity strength of 5/5 bilaterally. ASSESSMENT: Problem List: Patient requires education on adaptive equipment use for home Short-Term Goals: To be met by discharge from inpatient: Patient will be able to complete dressing activities including set up with use of adaptive equipment. Patient will be able to complete shower activity including transfer with stand by assist for safety. Long-Term Goals: To be met following discharge from inpatient: Patient will be able to return home independent and safe with all ADLs and functional transfers. TREATMENT PLAN: Patient will be seen B.I.D during the week and one time per day over the weekend as an inpatient to address the above goals and objectives. INITIAL TREATMENT: Treatment today consisted of the initial evaluation activities only. ANGIE
== END 2016-10-18 18:46 | disposition home or self-care (01) | DRG 554 ==
LOC: OPS 05:53 → MED/SURG 11:44
PROVIDERS: ADMIT Orthopaedic Surgery; ATTEND Orthopaedic Surgery
DX: M17.12 Unilateral primary osteoarthritis, left knee (principal); D62 Acute posthemorrhagic anemia; I10 Essential (primary) hypertension; E03.9 Hypothyroidism, unspecified; F32.9 Major depressive disorder, single episode, unspecified; K21.9 Gastro-esophageal reflux disease without esophagitis
CPT/HCPCS: 36415; 73560; 80048; 81001; 85027; 86850; 86900; 86901; 94150; 94761; 97010; 97110; 97161; 97165; 97530; 97535; A4216; J0690; J1100; J1650; J1885; J2250; J2270; J3010; J3490; J7040; J7050; J7120; Q0162; S0020